=== PATIENT | male | born 1990 | race Caucasian/White ===

== ENCOUNTER 2024-01-05 11:03 | Day surgery (SDC) | payer OTHER, SELFPAY ==
[2024-01-05] VITALS (13 sets, daily range): BP systolic 129–154; BP diastolic 75–99; PULSE 50–100; RESP 12–18; TEMP 36.2–37; O2SAT 91–100; BMI 28.0
[2024-01-05] MEDS: SODIUM CHLORIDE 0.9 % (FLUSH) 10 ML SYRINGE IVF (11:20)
[2024-01-05] MEDS: LACTATED RINGERS 1000 ML 1,000 ML 100 ML IV (11:20)
--- NOTE | 2024-01-05 13:55 | P.ENTPROC_ITS ---
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 The McIvor mouth gag was inserted the tongue retracted forward. No submucous cleft was noted on inspection or palpation. The right and left tonsils were removed with a combination of needlepoint cautery, bipolar cautery and suction cautery. Meticulous hemostasis was achieved. A new finding of what appeared to be a papilloma on the inferior aspect of the left soft palate adjacent to the uvula and obscured by the uvula was identified. This was removed with needlepoint cautery with a 2 mm margin. This was sent separately to pathology labeled possible papilloma. The adenoid pad was visualized with a laryngeal mirror and removed with suction cautery. The patient was extubated in the operating room taken recovery in sat isfactory condition. Blood loss was less than 10 mL. Surgeon: Gerald Read MD
--- NOTE | 2024-01-05 14:03 | W.ANESCHARGE ---
Anesthesia Charges Start Date/Time Anesthesia Start Date: 01/05/24 Anesthesia Start Time: 13:11 Stop Date/Time Anesthesia Stop Date: 01/05/24 Anesthesia Stop Time: 14:01
--- NOTE | 2024-01-05 14:09 | W.ANESCHARGE ---
Anesthesia Charges Start Date/Time Anesthesia Start Date: 01/05/24 Anesthesia Start Time: 13:11 Stop Date/Time Anesthesia Stop Date: 01/05/24 Anesthesia Stop Time: 14:01
--- NOTE | 2024-01-05 14:34 | SUR.PHASEI ---
patient met discharge criteria per anesthesia
[2024-01-05] MEDS: HYDROmorphone 0.5 mg/0.5 ml inj IVP (15:05)
[2024-01-05] MEDS: hydrOXYzine pamoate 25 MG CAPSULE PO (15:05)
--- NOTE | 2024-01-05 18:00 | PC.NURSE ---
Pt friendly and cooperative. Alert and tolerating ice chips and clears upon return from PACU. Advanced to regular soft foods without difficulty, pt denies nausea. Heart rate initially bradycardic, 40-50 BPM but has steadily increased to the 60's. Pt moving independently to the BR and voiding. Has not required supplemental oxygen at this time.
[2024-01-05] MEDS: ACETAMINOPHEN 160 MG/5 ML CUP 320 MG PO ×2 (18:08→21:38)
[2024-01-05] MEDS: OXYCODONE 1 MG/ML ORAL SOLN 5 MG PO ×2 (18:08→21:38)
[2024-01-06 02:46] VITALS: BP 136/94; PULSE 72; RESP 16; TEMP 36.7; O2SAT 100
[2024-01-06] MEDS: OXYCODONE 1 MG/ML ORAL SOLN 5 MG PO ×2 (02:53→07:41)
[2024-01-06] MEDS: ACETAMINOPHEN 160 MG/5 ML CUP 320 MG PO ×2 (02:53→07:42)
--- NOTE | 2024-01-06 05:56 | PC.NURSE ---
End of shift [id number]: A&O pleasant and cooperative. VSS w/ sats >92% on RA. Denies any difficulty breathing or swallowing. Rating pain in throat 4-/10. See eMAR for intervention. Pt taking in oral fluids and tolerating well. Denies n/v. Up at fanny in room. Denies lightheaded/dizziness. Voiding adequate amounts.
[2024-01-06 07:00] VITALS: BP 144/87; PULSE 68; RESP 16; TEMP 36.8; O2SAT 100
[2024-01-06] MEDS: IBUPROFEN 100 MG/5 ML SUSP 200 MG PO (09:33)
--- NOTE | 2024-01-06 09:57 | PC.NURSE ---
Pt friendly and cooperative, moving well independently. VS WNL and LS COA. Rates throat pain 6-8/10. Tolerating alternating PRN Oxy/Tylenol and Ibuprofen. PO intake is excellent. Patient has been eating ice chips, yogurt, broth, and occasional popsicles as well as drinking cold water, broth, and juice. Pt verbalized understanding of discharge instructions and follow up appointments. He was discharged to home independently in the care of his brother at 1000.
== END 2024-01-06 10:20 | disposition home or self-care (01) ==
LOC: OR 11:04 → MEDSURG 11:07
PROVIDERS: PCP Family Medicine; Visit Provider Otolaryngology
PROC: (CPT 42821; principal; 2024-01-05 12:30)
DX: J35.01 Chronic tonsillitis (principal); J35.3 Hypertrophy of tonsils with hypertrophy of adenoids; D10.39 Benign neoplasm of other parts of mouth; J34.89 Other specified disorders of nose and nasal sinuses
CPT/HCPCS: 42821; 00170; 88304; 88305; A9270; J0330; J1100; J1170; J2250; J2405; J2704; J3010; J7120

== ENCOUNTER 2024-04-08 19:41 | Outpatient (CLI) | payer OTHER, SELFPAY ==
--- NOTE | 2024-05-07 08:54 | W.PM.SLEEP ---
Sleep Study Details Details Interpreting Provider: Roro Date of Sleep Study: 04/08/24 Sleep Study Details: STUDY TYPE:? Home unattended ? BMI:? Not recorded ORDERING PROVIDER:? Roro INDICATION:? Concerns about sleep apnea ? SLEEP SUMMARY:? 368 minutes monitored RESPIRATORY SUMMARY:? AHI 11.1, supine 18.5, right lateral 5.5, left lateral 1.0, prone 1.3 Low oxygen 86 1.5% of study oxygen less than 90% Snoring 67.5% PERIODIC LIMB MOVEMENTS OF SLEEP:? Not recorded CARDIAC:? Range 40-106, mean 59.1 IMPRESSION:? Mild obstructive sleep apnea with supine position dependency RECOMMENDATION: Treatment options include positional therapy, dental appliance and/or CPAP.
== END 2024-04-08 19:42 | disposition home or self-care (01) ==
LOC: SLEEP 19:45
PROVIDERS: PCP Family Medicine; Visit Provider Otolaryngology
DX: G47.33 Obstructive sleep apnea (adult) (pediatric) (principal)
CPT/HCPCS: 95806

== ENCOUNTER 2024-07-24 09:03 | Outpatient (CLI) | payer OTHER, SELFPAY ==
--- NOTE | 2024-07-24 09:15 | CRLHL7_ITS ---
For Patients: As a result of the Century Cures Act, medical imaging exams and procedure reports are released immediately into your electronic medical record. You may view this report before your referring provider. If you have questions, please contact your health care provider. EXAM: MRI OF THE RIGHT HIP, WITHOUT CONTRAST CLINICAL INDICATION: Right hip pain. COMPARISON PLAIN FILMS: None. COMPARISON CROSS-SECTIONAL IMAGING STUDIES: None. TECHNICAL: Axial, sagittal and coronal PD FS small field of view images of the hip. Coronal T1, PD FS and axial T1 images of the pelvis. FINDINGS: RIGHT HIP: Labrum: No labral tear or paralabral cyst. Articular Cartilage: Articular surfaces appear smooth without focal chondral defect or subchondral marrow changes. Joint Space: No effusion, synovitis or loose body. Proximal Femoral Morphology: Mild convexity at the anterolateral femoral head neck junction and small subcortical cysts at the femoral head neck junction can be associated with cam type impingement. Acetabular Morphology: No focal or global retroversion. No significant overcoverage. LEFT HIP: No effusion or high-grade chondromalacia. No paralabral cyst. OSSEOUS STRUCTURES: No fracture, marrow edema or marrow replacement process. No evidence for avascular necrosis. MUSCULOTENDINOUS STRUCTURES AND BURSAE: Gluteus Minimus and Medius: No tendon tear or tendinopathy. No muscle atrophy or edema. Bursae: No trochanteric or iliopsoas bursitis. Common Hamstrings: No tendon tear or tendinopathy. Adductors and Flexors: Tendons and myotendinous junctions are intact. No muscle atrophy or edema. SOFT TISSUES: No subcutaneous edema, hematoma or fluid collection. OTHER JOINTS: Sacroiliac joints are maintained. Pubic symphysis is maintained. INTRAPELVIC CONTENTS: No mass, fluid collection or adenopathy. No inguinal hernia. NEUROVASCULAR STRUCTURES: No abnormality involving the visualized proximal femoral or proximal sciatic nerves. No aneurysmal dilation of the visualized distal aorta or iliac arterial circulation. IMPRESSION: 1. Mild convexity at the right anterolateral femoral head neck junction with small subcortical cyst can be associated with cam type impingement. 2. The right labrum and right hip articular cartilage are intact. Dictated by Pratik Smith MD @ 07/24/2024 2:02:41 PM (Electronically Signed)
== END 2024-07-24 09:04 | disposition home or self-care (01) ==
LOC: MRI 09:04
PROVIDERS: PCP Family Medicine; Visit Provider Family Medicine
DX: M25.551 Pain in right hip (principal); M25.851 Other specified joint disorders, right hip; G89.29 Other chronic pain
CPT/HCPCS: 73721

== ENCOUNTER 2024-07-31 09:17 | Outpatient (CLI) | payer OTHER, SELFPAY ==
--- NOTE | 2024-07-31 09:15 | CRLHL7_ITS ---
For Patients: As a result of the Century Cures Act, medical imaging exams and procedure reports are released immediately into your electronic medical record. You may view this report before your referring provider. If you have questions, please contact your health care provider. Indication: Right hip pain Comparison: 07/30/2024, 07/24/2024 Procedure : Informed consent was obtained. The site was marked. Time-out was performed. The skin of the right hip was cleansed with ChloraPrep. A sterile drape was placed. 8 cc of 1 percent lidocaine was administered for superficial anesthesia. Subsequently a 22 gauge spinal needle was introduced into the right hip joint under intermittent fluoroscopic guidance. Injection of 0.5 cc nonionic Omnipaque 240 contrast confirmed intra-articular location. Subsequently 3 cc 0.5 percent ropivacaine and 3 cc 1 percent lidocaine injected into the right hip joint. The needle was removed and hemostasis achieved with direct pressure. A dressing was placed. The patient tolerated the procedure well without immediate complication and was immediately sent to MRI for imaging. Total fluoroscopy time 7 seconds. Impression: Successful fluoroscopically guided right hip injection with ropivacaine and lidocaine. Dictated by Sorin Ellis MD @ 07/31/2024 11:42:28 AM (Electronically Signed)
== END 2024-07-31 09:18 | disposition home or self-care (01) ==
LOC: RAD 09:18
PROVIDERS: PCP Family Medicine; Visit Provider Orthopaedic Surgery
DX: M25.551 Pain in right hip (principal); G89.29 Other chronic pain
CPT/HCPCS: 20610; 77002; J2795; Q9966

== ENCOUNTER 2024-09-18 07:30 | Outpatient (RCR) | payer OTHER, SELFPAY | END 2025-01-16 23:59 | disposition home or self-care (01) | PROVIDERS: PCP Family Medicine; Visit Provider Family Medicine | DX: M54.9 Dorsalgia, unspecified (principal); M25.551 Pain in right hip; M54.2 Cervicalgia; G89.29 Other chronic pain; Z51.89 Encounter for other specified aftercare | CPT/HCPCS: 97110; 97140; 97163 ==